=== PATIENT | male | born 2000 | race Caucasian/White ===

== ENCOUNTER 2021-07-16 12:34 | Emergency (ER) | payer MEDICAID ==
[~2021-07-16] VITALS: Ht 121.9 cm; Wt 68.0 kg
[2021-07-16 13:22] VITALS: BP 132/83
[2021-07-16] MEDS ORDERED: IBUPROFEN 600MG TABLET PO ONE (14:45)
[2021-07-16] MEDS ORDERED: IBUP-2029 MT (15:11)
== END 2021-07-16 16:20 | disposition home or self-care (01) ==
LOC: ER 12:34
DX: S60.022A Contusion of left index finger without damage to nail, initial encounter (principal); W22.8XXA Striking against or struck by other objects, initial encounter; Y93.64 Activity, baseball; Y92.89 Other specified places as the place of occurrence of the external cause; Y99.8 Other external cause status; Z91.040 Latex allergy status
CPT/HCPCS: 73140; 99283

== ENCOUNTER 2022-01-09 10:20 | Emergency (ER) | payer MEDICAID ==
[~2022-01-09] VITALS: Ht 142.2 cm; Wt 54.0 kg
[~2022-01-09 10:20] MED LIST: IBUP-2029 MT
[2022-01-09 10:26] VITALS: BP 128/50
[2022-01-09 11:35] LABS: BASOPHILS % 0.4 % (0.0-2.0); EOSINOPHILS % 0.1 % (0.0-5.0); HEMATOCRIT. 44.2 % (42.0-52.0); HEMOGLOBIN. 15.2 g/dL (14.0-18.0); LYMPHOCYTES % 10.3 % (20.0-50.0); MEAN CORPUSCULAR HEMOGLOBIN 29.8 pg (28.0-32.0); MEAN CORPUSCULAR VOLUME 86.5 fL (80.0-94.0); MEAN PLATELET VOLUME 8.1 fl (7.4-10.4); MONOCYTES % 4.3 % (2.0-8.0); NEUTROPHILS % 84.9 % (40.0-76.0); PLATELET 374 x1000/uL (130-400); RED BLOOD CELL COUNT 5.12 mill/uL (4.7-6.1); RED CELL DISTRIBUTION WIDTH 12.9 % (11.6-14.6)
[2022-01-09 11:47] LABS: CHLORIDE 102 mEq/L (98-107)
[2022-01-09 13:10] LABS: CLARITY URINE CLEAR (CLEAR); COLOR URINE YELLOW (YELLOW); KETONES URINE NEGATIVE (NEGATIVE); LEUKOCYTE ESTERASE URINE 1+ (NEGATIVE); NITRITE URINE NEGATIVE (NEGATIVE); OCCULT BLOOD URINE 3+ (NEGATIVE); PH URINE >=9.0 (4.5-8.0); PROTEIN URINE 3+ (NEGATIVE); SPECIFIC GRAVITY URINE 1.017 (1.005-1.030)
[2022-01-09] MEDS ORDERED: CEFD300C3 MT (13:26)
== END 2022-01-09 13:47 | disposition home or self-care (01) ==
LOC: ER 10:20
DX: N39.0 Urinary tract infection, site not specified (principal); Z88.5 Allergy status to narcotic agent; Z88.9 Allergy status to unspecified drugs, medicaments and biological substances; Z98.890 Other specified postprocedural states; Z91.040 Latex allergy status
CPT/HCPCS: 36415; 74176; 80053; 81003; 85025; 99284

== ENCOUNTER 2022-04-04 21:38 | Emergency (ER) | payer MEDICAID ==
[~2022-04-04] VITALS: Ht 132.1 cm; Wt 39.0 kg
[~2022-04-04 21:38] MED LIST changes: +CEFD300C3 MT
[2022-04-04 21:54] VITALS: BP 119/66
[2022-04-04] MEDS ORDERED: BACITRACIN ZINC OINT UDPKT TOP ONE (23:30)
[2022-04-05] MEDS ORDERED: TETANUS, DIPHTHERIA, PERTUSSIS VAC/PF 0.5ML (>10YR OLD) IM ONE (00:15)
== END 2022-04-05 00:53 | disposition home or self-care (01) ==
LOC: ER 21:38
DX: S61.212A Laceration without foreign body of right middle finger without damage to nail, initial encounter (principal); Q05.9 Spina bifida, unspecified; Z89.611 Acquired absence of right leg above knee; Z88.5 Allergy status to narcotic agent; Z88.8 Allergy status to other drugs, medicaments and biological substances; Z91.040 Latex allergy status; W25.XXXA Contact with sharp glass, initial encounter; Y93.89 Activity, other specified; Y92.098 Other place in other non-institutional residence as the place of occurrence of the external cause
CPT/HCPCS: 73140; 90471; 90715; 99283

== ENCOUNTER 2025-07-15 16:01 | Inpatient (IN) | payer MEDICAID ==
[~2025-07-15] VITALS: Ht 132.1 cm; Wt 43.1 kg
[2025-07-15] VITALS (14 sets, daily range): BP systolic 81–120; BP diastolic 55–74; PULSE 105–128; RESP 11–18; TEMP 37.6968–37.7; O2SAT 94–100
[~2025-07-15 16:01] MED LIST changes: +IBUP-1455 MT; -IBUP-2029 MT
[2025-07-15] MEDS: VANCOMYCIN 1G PREMIX 200 ML IV ONE (16:45)
[2025-07-15] MEDS: ACETAMINOPHEN 1000MG/100ML 100 ML IV ONE (16:53)
[2025-07-15] MEDS: SODIUM CHLORIDE 0.9% (SEPSIS BOLUS) IV ONE (16:53)
[2025-07-15] MEDS: SODIUM CHLORIDE 0.9% 1,000 ML IV ONE (16:54)
[2025-07-15] MEDS: MEROPENEM 1G/100ML 100 ML IV ONE (17:26)
[2025-07-15 17:35] LABS: HEMATOCRIT. 38.3 % (42.0-52.0); HEMOGLOBIN. 12.5 g/dL (14.0-18.0); MEAN PLATELET VOLUME 8.6 fl (7.4-10.4); PLATELET 293 x1000/uL (130-400); RED BLOOD CELL COUNT 4.34 mill/uL (4.7-6.1); RED CELL DISTRIBUTION WIDTH 13.7 % (11.6-14.6)
[2025-07-15 17:46] LABS: GLUCOSE URINE NEGATIVE (NEGATIVE); KETONES URINE NEGATIVE (NEGATIVE); LEUKOCYTE ESTERASE URINE 3+ (NEGATIVE); NITRITE URINE NEGATIVE (NEGATIVE); OCCULT BLOOD URINE NEGATIVE (NEGATIVE); PH URINE 7.0 (4.5-8.0); PROTEIN URINE TRACE (NEGATIVE); SPECIFIC GRAVITY URINE 1.011 (1.005-1.030); UROBILINOGEN URINE 1.0 E.U./dL (0.2-1.0)
[2025-07-15 17:50] LABS: CREATININE 0.7 mg/dL (0.6-1.3); UREA NITROGEN BLOOD 17 mg/dL (9-23)
[2025-07-15 17:51] LABS: ASPARTATE AMINOTRANSFERASE 21 IU/L (<34)
[2025-07-15 17:52] LABS: BILIRUBIN DIRECT 0.6 mg/dL (<=3.0); BILIRUBIN TOTAL 1.1 mg/dL (0.1-1.0); PROTEIN TOTAL 7.2 g/dL (6.0-8.3)
[2025-07-15 17:58] LABS: INR 1.2
[2025-07-15] MEDS: NOREPINEPHRINE 8MG/250ML PMX 250 ML IV SCH (18:03)
[2025-07-15 18:14] LABS: LYMPHOCYTES % MANUAL 26.0 % (20.0-50.0); MONOCYTES % MANUAL 4.0 % (2.0-8.0); NEUTROPHILS % MANUAL 70.0 % (45.0-75.0); PLATELET ESTIMATE NORMAL
[2025-07-15 18:31] LABS: CLARITY URINE HAZY (CLEAR); COLOR URINE STRAW (YELLOW)
[2025-07-15 18:33] LABS: WBC URINE 25-50 /hpf (0-2)
[2025-07-15 18:36] LABS: RBC URINE NONE SEEN /hpf (0-2)
[2025-07-15 18:37] LABS: BACTERIA URINE 2+; MUCUS URINE TRACE /lpf (NONE/TRACE); SQUAMOUS EPITHELIAL CELL URINE RARE /lpf (RARE/1+)
[2025-07-15] MEDS ORDERED: HYDROMORPHONE HCL/PF 2MG/ML INJ IV ONE (19:30)
[2025-07-15] MEDS: KCL 10MEQ/50ML PREMIX 50 ML IV SCH (19:34)
[2025-07-15] MEDS: POTASSIUM CHLORIDE 20MEQ TABLET SR PO SCH (19:35)
[2025-07-15] MEDS ORDERED: CLONIDINE 0.1MG TABLET PO PRN (20:00)
[2025-07-15] MEDS ORDERED: GUAIFENESIN 200MG/10ML SUGAR FREE UDC PO PRN (20:00)
[2025-07-15] MEDS ORDERED: IPRATROPIUM/ALBUTEROL 0.5-3(2.5)MG/3ML NEB HHN PRN (20:00)
[2025-07-15] MEDS ORDERED: DEXTROSE 50% WATER 50ML SYRINGE IV PRN (20:00)
[2025-07-15] MEDS ORDERED: MAGNESIUM/ALUMINUM HYDROXIDE/SIMETHICONE 30ML UDC PO PRN (20:00)
[2025-07-15] MEDS ORDERED: DOCUSATE SODIUM 100MG CAPSULE PO PRN (20:00)
[2025-07-15] MEDS: HYDROMORPHONE HCL/PF 1MG/ML INJ IV NR (20:03)
[2025-07-15 20:41] LABS: INFLUENZA TYPE A Presumptive Negative (Pres. Neg.); INFLUENZA TYPE B Presumptive Negative (Pres. Neg.)
[2025-07-15 20:42] LABS: RESPIRATORY SYNCYTIAL VIRUS Not Detected (Not Detectd)
[2025-07-15] MEDS: LACTATED RINGERS 1,000 ML IV NR (21:36)
[2025-07-15] MEDS: MAGNESIUM 2 G PREMIX 50 ML IV SCH (21:59)
[2025-07-15] MEDS ORDERED: SODIUM CHLORIDE 0.9% 1,000 ML IV ONE (22:15)
[2025-07-15] MEDS ORDERED: MEROPENEM 1,000 MG in SODIUM CHLORIDE 0.9% 100 ML IV SCH (23:00)
[2025-07-15] MEDS: MIDODRINE HCL 5MG TABLET PO SCH (23:26)
[2025-07-15] MEDS: DEXT 5%/LACTATED RINGERS 1,000 ML IV SCH (23:41)
[2025-07-15] MEDS: MEROPENEM 1G/100ML 100 ML IV SCH (23:42)
[2025-07-16] VITALS (96 sets, daily range): BP systolic 77–118; BP diastolic 42–69; PULSE 77–142; RESP 0–40; TEMP 37.1–38.9; O2SAT 93–99
[2025-07-16] MEDS: VANCOMYCIN 500MG PREMIX 100 ML IV SCH (01:52)
[2025-07-16 02:32] LABS: TROPONIN I HIGH SENSITIVITY 18 ng/L (3.0-53)
[2025-07-16 03:04] LABS: FOLIC ACID (FOLATE) SERUM 15.14 ng/mL (>5.38); VITAMIN B12 SERUM 558 pg/mL (211-911)
[2025-07-16 05:33] LABS: CREATININE 0.8 mg/dL (0.6-1.3)
[2025-07-16 05:34] LABS: LDL CHOLESTEROL 36 mg/dL (5-100); TRIGLYCERIDE 49 mg/dL (0-150); TROPONIN I HIGH SENSITIVITY 18 ng/L (3.0-53); UREA NITROGEN BLOOD 18 mg/dL (9-23)
[2025-07-16 05:39] LABS: T4 FREE 1.08 ng/dL (0.89-1.76)
[2025-07-16 06:03] LABS: HEMATOCRIT. 34.3 % (42.0-52.0); HEMOGLOBIN. 11.4 g/dL (14.0-18.0); MEAN PLATELET VOLUME 9.0 fl (7.4-10.4); PLATELET 207 x1000/uL (130-400); RED BLOOD CELL COUNT 3.81 mill/uL (4.7-6.1); RED CELL DISTRIBUTION WIDTH 13.6 % (11.6-14.6)
[2025-07-16] MEDS: ACETAMINOPHEN 325MG TABLET PO PRN (06:17)
[2025-07-16] MEDS ORDERED: NALOXONE HCL 0.4MG/ML VIAL IV PRN (09:45)
[2025-07-16] MEDS: PANTOPRAZOLE SODIUM 40 MG/VIAL IV SCH (09:48)
[2025-07-16] MEDS: HYDROMORPHONE HCL/PF 2MG/ML INJ IV PRN (09:49)
[2025-07-16] MEDS: ENOXAPARIN 40MG/0.4ML SYR SUBCUT SCH (09:50)
[2025-07-16] MEDS: NOREPINEPHRINE 8MG/250ML PMX 250 ML IV PRN (10:12)
[2025-07-16] MEDS ORDERED: POLYETHYLENE GLYCOL 3350 (17GM) 1 DOSE PACK PO SCH (20:00)
[2025-07-16] MEDS: POLYETHYLENE GLYCOL 3350 (17GM) 1 DOSE PACK PO SCH (20:20)
[2025-07-16] MEDS: HYDROMORPHONE HCL/PF 1MG/ML INJ IV PRN (20:44)
[2025-07-16] MEDS ORDERED: HYDROMORPHONE HCL/PF 2MG/ML INJ IV PRN (21:30)
[2025-07-16 21:37] LABS: BAND% 6.0 % (1.0-6.0); LYMPHOCYTES % MANUAL 2.0 % (20.0-50.0); MONOCYTES % MANUAL 2.0 % (2.0-8.0); NEUTROPHILS % MANUAL 90.0 % (45.0-75.0); PLATELET ESTIMATE NORMAL
[2025-07-17] VITALS (96 sets, daily range): BP systolic 85–128; BP diastolic 43–76; PULSE 69–124; RESP 0–33; TEMP 36.8–38.3; O2SAT 93–100
[2025-07-17] MEDS: HYDROMORPHONE HCL/PF 1MG/ML INJ IV PRN (03:31)
[2025-07-17 06:04] LABS: BASOPHILS % 0.2 % (0.0-2.0); EOSINOPHILS % 0.0 % (0.0-5.0); HEMATOCRIT. 30.7 % (42.0-52.0); HEMOGLOBIN. 10.5 g/dL (14.0-18.0); LYMPHOCYTES % 11.3 % (20.0-50.0); MEAN PLATELET VOLUME 9.2 fl (7.4-10.4); MONOCYTES % 4.7 % (2.0-8.0); NEUTROPHILS % 83.8 % (40.0-76.0); PLATELET 157 x1000/uL (130-400); RED BLOOD CELL COUNT 3.53 mill/uL (4.7-6.1); RED CELL DISTRIBUTION WIDTH 13.7 % (11.6-14.6)
[2025-07-17 06:20] LABS: UREA NITROGEN BLOOD 10 mg/dL (9-23)
[2025-07-17 06:22] LABS: CREATININE 0.5 mg/dL (0.6-1.3)
[2025-07-17] MEDS: IRON SUCROSE COMPLEX 100 MG/5 ML ML IV SCH (09:00)
[2025-07-17] MEDS: CALCIUM GLUCONATE 1GM PREMIX 50 ML IV NR (10:59)
[2025-07-17] MEDS: VANCOMYCIN 750MG PREMIX 150 ML IV SCH (20:53)
[2025-07-18] VITALS (93 sets, daily range): BP systolic 79–170; BP diastolic 37–94; PULSE 56–119; RESP 5–32; TEMP 36.7–37.3; O2SAT 89–98
[2025-07-18 05:26] LABS: BASOPHILS % 0.2 % (0.0-2.0); EOSINOPHILS % 0.2 % (0.0-5.0); HEMATOCRIT. 32.1 % (42.0-52.0); HEMOGLOBIN. 10.9 g/dL (14.0-18.0); LYMPHOCYTES % 19.8 % (20.0-50.0); MEAN PLATELET VOLUME 9.2 fl (7.4-10.4); MONOCYTES % 3.7 % (2.0-8.0); NEUTROPHILS % 76.1 % (40.0-76.0); PLATELET 134 x1000/uL (130-400); RED BLOOD CELL COUNT 3.67 mill/uL (4.7-6.1); RED CELL DISTRIBUTION WIDTH 13.7 % (11.6-14.6)
[2025-07-18 05:42] LABS: CREATININE 0.5 mg/dL (0.6-1.3); UREA NITROGEN BLOOD 6 mg/dL (9-23)
[2025-07-18 05:44] LABS: PHOSPHORUS 2.2 mg/dL (2.5-4.9)
[2025-07-18] MEDS: ONDANSETRON HCL 4MG/2ML INJ IV PRN (09:20)
[2025-07-18] MEDS: MIDODRINE HCL 5MG TABLET PO SCH ×2 (12:28→21:51)
[2025-07-18] MEDS: NA PHOS,M-B/NA PHOS,DI-BA ENEMA 118ML PR NR (17:55)
[2025-07-18] MEDS: CEFTRIAXONE 2GM/50ML 50 ML IV SCH (17:56)
[2025-07-18] MEDS: MIDODRINE HCL 2.5MG TABLET PO SCH (21:28)
[2025-07-18] MEDS: DEXT 5%/LACTATED RINGERS 1,000 ML IV SCH (23:15)
[2025-07-19] VITALS (82 sets, daily range): BP systolic 90–137; BP diastolic 42–91; PULSE 47–105; RESP 0–29; TEMP 36.6–36.7; O2SAT 84–98
[2025-07-19 05:30] LABS: BASOPHILS % 0.4 % (0.0-2.0); EOSINOPHILS % 0.8 % (0.0-5.0); HEMATOCRIT. 31.1 % (42.0-52.0); HEMOGLOBIN. 10.4 g/dL (14.0-18.0); LYMPHOCYTES % 28.0 % (20.0-50.0); MEAN PLATELET VOLUME 9.5 fl (7.4-10.4); MONOCYTES % 4.3 % (2.0-8.0); NEUTROPHILS % 66.5 % (40.0-76.0); PLATELET 144 x1000/uL (130-400); RED BLOOD CELL COUNT 3.56 mill/uL (4.7-6.1); RED CELL DISTRIBUTION WIDTH 13.6 % (11.6-14.6)
[2025-07-19 05:53] LABS: CREATININE 0.5 mg/dL (0.6-1.3); UREA NITROGEN BLOOD 6 mg/dL (9-23)
[2025-07-19] MEDS: NA PHOS,M-B/NA PHOS,DI-BA ENEMA 118ML PR SCH (08:29)
[2025-07-19] MEDS ORDERED: MAGNESIUM HYDROXIDE 400MG/5ML 30ML UDC PO PRN (10:45)
[2025-07-19] MEDS: SENNOSIDES/DOCUSATE SOD 8.6/50MG TABLET PO SCH (12:00)
[2025-07-19] MEDS: POLYETHYLENE GLYCOL 3350 (17GM) 1 DOSE PACK PO SCH (12:00)
[2025-07-19] MEDS: MAGNESIUM 2 G PREMIX 50 ML IV NR (18:29)
[2025-07-19] MEDS: THIAMINE HCL 100MG TABLET PO SCH (18:29)
[2025-07-19] MEDS: TOTAL PARENTERAL NUTRITION IV SCH (23:59)
[2025-07-20] VITALS: BP 134/73; PULSE 72; RESP 18; TEMP 37.2; O2SAT 96
[2025-07-20] MEDS: BLOOD SUGAR DIAGNOSTIC STRIP TEST SCH (00:08)
[2025-07-20 04:00] VITALS: BP 96/42; PULSE 78; RESP 20; TEMP 36.6; O2SAT 96
[2025-07-20 08:16] VITALS: BP 126/73; PULSE 69; RESP 18; TEMP 35.9; O2SAT 100
[2025-07-20] MEDS: ENOXAPARIN 30MG/0.3ML SYR SUBCUT SCH (08:58)
[2025-07-20 09:48] LABS: BASOPHILS % 0.6 % (0.0-2.0); EOSINOPHILS % 2.2 % (0.0-5.0); HEMATOCRIT. 34.7 % (42.0-52.0); HEMOGLOBIN. 11.4 g/dL (14.0-18.0); LYMPHOCYTES % 39.3 % (20.0-50.0); MEAN PLATELET VOLUME 10.2 fl (7.4-10.4); MONOCYTES % 4.6 % (2.0-8.0); NEUTROPHILS % 53.3 % (40.0-76.0); PLATELET 178 x1000/uL (130-400); RED BLOOD CELL COUNT 3.96 mill/uL (4.7-6.1); RED CELL DISTRIBUTION WIDTH 13.5 % (11.6-14.6)
[2025-07-20 10:25] LABS: CREATININE 0.5 mg/dL (0.6-1.3); UREA NITROGEN BLOOD 9 mg/dL (9-23)
[2025-07-20 11:50] VITALS: BP 106/55; PULSE 73; RESP 18; TEMP 36.5; O2SAT 100
[2025-07-20 16:01] VITALS: BP 128/81; PULSE 93; RESP 18; TEMP 36.5; O2SAT 100
[2025-07-20 20:00] VITALS: BP 111/68; PULSE 83; RESP 20; TEMP 37.6; O2SAT 98
[2025-07-21] VITALS: BP 108/65; PULSE 83; RESP 18; TEMP 37.2; O2SAT 97
[2025-07-21 04:00] VITALS: BP 105/69; PULSE 94; RESP 18; TEMP 36.9; O2SAT 97
[2025-07-21 06:24] LABS: CREATININE 0.6 mg/dL (0.6-1.3)
[2025-07-21 06:25] LABS: UREA NITROGEN BLOOD 13 mg/dL (9-23)
[2025-07-21 06:26] LABS: ASPARTATE AMINOTRANSFERASE 225 IU/L (<34)
[2025-07-21 06:27] LABS: BILIRUBIN TOTAL 0.8 mg/dL (0.1-1.0); PHOSPHORUS 2.2 mg/dL (2.5-4.9); PROTEIN TOTAL 7.5 g/dL (6.0-8.3)
[2025-07-21 06:36] LABS: BASOPHILS % 0.4 % (0.0-2.0); EOSINOPHILS % 3.0 % (0.0-5.0); HEMATOCRIT. 38.4 % (42.0-52.0); HEMOGLOBIN. 12.8 g/dL (14.0-18.0); LYMPHOCYTES % 42.7 % (20.0-50.0); MEAN PLATELET VOLUME 9.9 fl (7.4-10.4); MONOCYTES % 9.3 % (2.0-8.0); NEUTROPHILS % 44.6 % (40.0-76.0); PLATELET 212 x1000/uL (130-400); RED BLOOD CELL COUNT 4.41 mill/uL (4.7-6.1); RED CELL DISTRIBUTION WIDTH 13.6 % (11.6-14.6)
[2025-07-21 08:00] VITALS: BP 128/69; PULSE 79; RESP 20; TEMP 36.7; O2SAT 96
[2025-07-21 11:58] VITALS: BP 142/90; PULSE 100; RESP 18; TEMP 36.6; O2SAT 99
[2025-07-21] MEDS ORDERED: POLY17PO43 PO (13:35)
[2025-07-21] MEDS ORDERED: SENN1TAB35 PO (13:35)
[2025-07-21 16:00] VITALS: BP 115/73; PULSE 100; RESP 16; TEMP 36.5; O2SAT 98
[2025-07-21 20:00] VITALS: BP 136/74; PULSE 75; RESP 20; TEMP 36.7; O2SAT 96
[2025-07-22] VITALS: BP 121/72; PULSE 88; RESP 19; TEMP 36.5; O2SAT 100
[2025-07-22 04:34] VITALS: BP 111/57; PULSE 69; RESP 18; TEMP 36.6; O2SAT 99
[2025-07-22 07:20] LABS: CREATININE 0.5 mg/dL (0.6-1.3); UREA NITROGEN BLOOD 17 mg/dL (9-23)
[2025-07-22 07:22] LABS: ASPARTATE AMINOTRANSFERASE 191 IU/L (<34); BILIRUBIN TOTAL 0.7 mg/dL (0.1-1.0); PHOSPHORUS 2.8 mg/dL (2.5-4.9); PROTEIN TOTAL 7.4 g/dL (6.0-8.3)
[2025-07-22 07:31] LABS: BASOPHILS % 0.5 % (0.0-2.0); EOSINOPHILS % 4.2 % (0.0-5.0); HEMATOCRIT. 38.0 % (42.0-52.0); HEMOGLOBIN. 12.7 g/dL (14.0-18.0); LYMPHOCYTES % 49.2 % (20.0-50.0); MEAN PLATELET VOLUME 10.2 fl (7.4-10.4); MONOCYTES % 13.7 % (2.0-8.0); NEUTROPHILS % 32.4 % (40.0-76.0); PLATELET 278 x1000/uL (130-400); RED BLOOD CELL COUNT 4.37 mill/uL (4.7-6.1); RED CELL DISTRIBUTION WIDTH 13.7 % (11.6-14.6)
[2025-07-22 08:11] VITALS: BP 121/73; PULSE 96; RESP 18; TEMP 36.4; O2SAT 99
[2025-07-22 09:56] VITALS: BP 121/73; PULSE 96; RESP 18; TEMP 96.7
[2025-07-22 11:39] VITALS: BP 124/65; PULSE 93; RESP 18; TEMP 36.4; O2SAT 100
[2025-07-23] MEDS ORDERED: BLOOD SUGAR DIAGNOSTIC STRIP TEST SCH (09:00)
== END 2025-07-22 11:20 | disposition home or self-care (01) | DRG 720 ==
LOC: ER 16:01 → CVICU 19:03 → EDBEDREQ 19:05 → EDBEDREQSVC 19:05 → EDBEDREQTM 19:05 → ENRESERV 19:19 → CANRESERV 19:19 → ENRESERV 20:26 → MICUNO 07-18 04:00 → 7WST 07-19 20:45
PROVIDERS: ADMIT Internal Medicine; ATTEND Internal Medicine
DX: A41.59 Other Gram-negative sepsis (principal); R65.21 Severe sepsis with septic shock; J91.8 Pleural effusion in other conditions classified elsewhere; E83.39 Other disorders of phosphorus metabolism; K80.10 Calculus of gallbladder with chronic cholecystitis without obstruction; R13.12 Dysphagia, oropharyngeal phase; T81.30XA Disruption of wound, unspecified, initial encounter; N13.6 Pyonephrosis; B96.1 Klebsiella pneumoniae [K. pneumoniae] as the cause of diseases classified elsewhere; F11.20 Opioid dependence, uncomplicated; D64.9 Anemia, unspecified; Z20.822 Contact with and (suspected) exposure to COVID-19; Z89.611 Acquired absence of right leg above knee; E83.42 Hypomagnesemia; G89.29 Other chronic pain; K31.84 Gastroparesis; Y83.8 Other surgical procedures as the cause of abnormal reaction of the patient, or of later complication, without mention of misadventure at the time of the procedure; J98.11 Atelectasis; K56.41 Fecal impaction; Z88.5 Allergy status to narcotic agent; Z91.048 Other nonmedicinal substance allergy status; Z87.440 Personal history of urinary (tract) infections; Z74.01 Bed confinement status; Y92.89 Other specified places as the place of occurrence of the external cause; Q05.9 Spina bifida, unspecified; Q65.89 Other specified congenital deformities of hip; Z99.3 Dependence on wheelchair; Z98.84 Bariatric surgery status
CPT/HCPCS: 36415; 71045; 74018; 74176; 80048; 80053; 80061; 80076; 80202; 81003; 82270; 82550; 82607; 82728; 82746; 82962; 83540; 83550; 83605; 83735; 84100; 84145; 84439; 84443; 84484; 85025; 85044; 87077; 87186; 87420; 87426; 87804; 93005; 93970; 99291; J0612; J0696; J1171; J1650; J2185; J2405; J2470; J3373; J3475; J3480; J3490; J7030; J7060; J7121; J0131